=== PATIENT | male | born 1995 | race Caucasian/White ===

== ENCOUNTER → 2017-09-13 | Outpatient (CLI) | payer OTHER ==
[~2017-09-13] MED LIST: MELATONIN5 M1 SL; NORCO 325 MG-51 TAB PO; PRINIVIL20 MG PO; PROTONIX 40MG T40 MG PO; ZOFRAN ODT4 MG PO
[2017-09-13 16:32] LABS: BASO # 0.1 (0.0-0.2); BASO % 0.7 % (0.0-2.0); EOS # 0.2 (0.0-0.7); EOS % 2.3 % (0-4.0); GRAN # 4.9 (1.4-6.5); HEMATOCRIT 47.3 % (42.0-52.0); HEMOGLOBIN 16.7 g/dl (13.5-18.0); LYMPH # 2.3 (1.2-3.4); LYMPH % 27.8 % (20.0-51.0); MEAN CELL VOLUME 87 fl (80.0-100.0); MEAN CORPUSCULAR HEMOGLOBIN 31 pg (27.0-31.0); MEAN CORPUSCULAR HGB CONC 35 g/dl (33.0-37.0); MEAN PLATELET VOLUME 9.7 fl (7.4-10.4); MONO # 0.7 (0.1-0.6); PLATELET COUNT 262 K/mm3 (130-400); RED BLOOD COUNT 5.45 M/mm3 (4.20-5.60); REDCELL DISTRIBUTION WIDTH-CV 13.2 % (11.5-14.5)
[2017-09-13 16:40] LABS: ALANINE AMINOTRANSFERASE 27 U/L (21-72); ALBUMIN 4.7 gm/dL (3.5-5.0); ALKALINE PHOSPHATASE 71 U/L (50-136); ANION GAP 11 mmol/L (7-16); AST,SGOT 66 U/L (15-37); BILIRUBIN,TOTAL 1.1 mg/dL (0.0-1.0); BLOOD UREA NITROGEN 14 mg/dL (9-20); CALCIUM 9.4 mg/dL (8.4-10.2); CARBON DIOXIDE 26 mmol/L (22-30); CHLORIDE 104 mmol/L (98-107); CREATININE, serum 0.84 mg/dL (0.66-1.25); GLUCOSE 97 mg/dL (74-106); LIPASE 66 U/L (23-300); POTASSIUM 4.1 mmol/L (3.4-5.0); SODIUM 141 mmol/L (137-145); TOTAL PROTEIN 7.6 gm/dL (6.4-8.2)
[2017-09-13 16:41] LABS: C-REACTIVE PROTEIN < 0.5 mg/dL (0.0-0.9)
[2017-09-13 17:01] LABS: ERYTHROCYTE SEDIMENTATION RATE 1 mm/hr (0-15)
== END ==
LOC: COL.LAB 13:58
PROVIDERS: Family Medicine
DX: K29.70 Gastritis, unspecified, without bleeding (principal); R19.5 Other fecal abnormalities

== ENCOUNTER 2017-09-16 11:16 | Emergency (ER) | payer OTHER ==
[~2017-09-16] VITALS: Ht 175.3 cm; Wt 77.3 kg
[2017-09-16 11:21] VITALS: TEMP 97.9
[2017-09-16 12:28] LABS: BASO # 0.1 (0.0-0.2); BASO % 1.1 % (0.0-2.0); EOS # 0.1 (0.0-0.7); EOS % 0.7 % (0-4.0); GRAN # 5.5 (1.4-6.5); GRAN % 65.1 % (42.2-75.2); LYMPH # 2.3 (1.2-3.4); LYMPH % 27.8 % (20.0-51.0); MEAN CELL VOLUME 85 fl (80.0-100.0); MEAN CORPUSCULAR HGB CONC 36 g/dl (33.0-37.0); MEAN PLATELET VOLUME 9.4 fl (7.4-10.4); MONO # 0.4 (0.1-0.6); MONO % 5.1 % (1.7-9.3); PLATELET COUNT 265 K/mm3 (130-400); RED BLOOD COUNT 6.29 M/mm3 (4.20-5.60); REDCELL DISTRIBUTION WIDTH-CV 13.4 % (11.5-14.5)
[2017-09-16 12:32] LABS: HEMATOCRIT 53.6 % (42.0-52.0); HEMOGLOBIN 19.3 g/dl (13.5-18.0); MEAN CORPUSCULAR HEMOGLOBIN 31 pg (27.0-31.0)
[2017-09-16 12:37] LABS: ALBUMIN 5.3 gm/dL (3.5-5.0); BILIRUBIN,TOTAL 0.9 mg/dL (0.0-1.0); CALCIUM 9.7 mg/dL (8.4-10.2); CREATININE, serum 0.84 mg/dL (0.66-1.25); POTASSIUM 4.4 mmol/L (3.4-5.0); TOTAL PROTEIN 8.5 gm/dL (6.4-8.2)
[2017-09-16] MEDS ORDERED: NORCO 325 MG-51 TAB PO (14:58)
[2017-09-16] MEDS ORDERED: FLAGYL500 MG PO ×2 (14:58→15:33)
[2017-09-16] MEDS ORDERED: CIPRO 500MG TA500 MG PO ×2 (14:58→15:33)
[2017-09-16] MEDS ORDERED: PHENERGAN 25 TA25 MG PO ×2 (14:58→15:33)
[2017-09-16 15:35] VITALS: BP 142/102; PULSE 93
== END 2017-09-16 15:36 | disposition home or self-care (01) ==
LOC: COL.ER 11:16
PROVIDERS: Physician Assistant
DX: K52.9 Noninfective gastroenteritis and colitis, unspecified (principal); K29.70 Gastritis, unspecified, without bleeding; I10 Essential (primary) hypertension; K21.9 Gastro-esophageal reflux disease without esophagitis
CPT/HCPCS: C9113; J2270; J2405; J2550; J7030; Q9967

== ENCOUNTER → 2017-09-18 | Outpatient (CLI) | payer OTHER ==
[~2017-09-18] VITALS: Ht 175.3 cm; Wt 75.9 kg
[~2017-09-18] MED LIST changes: +CIPRO 500MG TA500 MG PO; +FLAGYL500 MG PO; +PHENERGAN 25 TA25 MG PO
[2017-09-18 13:21] LABS: HEMATOCRIT 46.8 % (42.0-52.0); MEAN CELL VOLUME 85 fl (80.0-100.0); MEAN CORPUSCULAR HEMOGLOBIN 31 pg (27.0-31.0); MEAN CORPUSCULAR HGB CONC 36 g/dl (33.0-37.0); MEAN PLATELET VOLUME 9.3 fl (7.4-10.4); PLATELET COUNT 235 K/mm3 (130-400); RED BLOOD COUNT 5.49 M/mm3 (4.20-5.60)
[2017-09-18 13:28] VITALS: BP 135/94; PULSE 88; TEMP 98.2
[2017-09-18 13:28] LABS: CALCIUM 9.3 mg/dL (8.4-10.2); CREATININE, serum 0.8 mg/dL (0.66-1.25)
[2017-09-18 13:31] LABS: HEMOGLOBIN 16.8 g/dl (13.5-18.0)
[2017-09-18 14:08] LABS: BAND 1 % (0-10); EOSINOPHIL 4 % (0-4); LYMPHOCYTE 31 % (20.0-51.0); NEUTROPHILS 56 % (42.0-75.2); PLATELET ESTIMATE NORMAL (NORMAL)
== END ==
LOC: EUO 12:26
PROVIDERS: Family Medicine
DX: D75.1 Secondary polycythemia (principal); R41.0 Disorientation, unspecified
CPT/HCPCS: C9113; J2405; J2765; J7030